=== PATIENT | female | born 1955 | race Caucasian/White ===

== ENCOUNTER 2022-04-24 06:35 | Day surgery (SDC) | payer MEDICARE, BC ==
[~2022-04-24 06:35] MED LIST: Lactated Ringers 1,000 ML IV SCH
[2022-04-24] MEDS ORDERED: Lidocaine 2% 5 ML SDV ONE (07:40)
[2022-04-24] MEDS ORDERED: Propofol 200 MG/20 ML SDV ONE (07:41)
[2022-04-24] MEDS ORDERED: Glucagon,Human Recombinant 1 MG Vial ONE (08:09)
[2022-04-24] MEDS ORDERED: Lactated Ringers 1,000 ML IV SCH (08:45)
[2022-04-24 11:02] VITALS: BP 109/59; PULSE 68
== END 2022-04-24 09:15 | disposition home or self-care (01) ==
LOC: MW.SDS 06:35
PROVIDERS: ATTEND Surgery
DX: Z12.11 Encounter for screening for malignant neoplasm of colon (principal); D12.3 Benign neoplasm of transverse colon; D12.4 Benign neoplasm of descending colon; K57.30 Diverticulosis of large intestine without perforation or abscess without bleeding; J30.9 Allergic rhinitis, unspecified; F41.9 Anxiety disorder, unspecified; E78.00 Pure hypercholesterolemia, unspecified; G47.30 Sleep apnea, unspecified; F32.A Depression, unspecified; E03.9 Hypothyroidism, unspecified; Z86.010 Personal history of colon polyps; Z80.0 Family history of malignant neoplasm of digestive organs; Z79.899 Other long term (current) drug therapy; Z91.018 Allergy to other foods; Z98.890 Other specified postprocedural states; Z79.890 Hormone replacement therapy
CPT/HCPCS: 88305; J1610; J2704; J3490; J7120